=== PATIENT | male | born 1955 | race Caucasian/White ===

== ENCOUNTER 2020-11-18 16:50 | Emergency (ER) | payer MEDICARE ==
[~2020-11-18] VITALS: Ht 182.9 cm; Wt 79.5 kg
[2020-11-18 16:51] VITALS: BP 136/91
[2020-11-18] MEDS ORDERED: CEPH250T PO (16:55)
[2020-11-18] MEDS ORDERED: MUPI22OI30 TOP (16:55)
[2020-11-18] MEDS ORDERED: DOXY100C76 PO (16:55)
[2020-11-22] MEDS ORDERED: NO HOME MEDS (22:26)
[2020-11-26] MEDS ORDERED: CLIN-97 PO (10:41)
== END 2020-11-18 17:04 | disposition home or self-care (01) ==
LOC: ER 16:50
DX: L02.416 Cutaneous abscess of left lower limb (principal); L03.116 Cellulitis of left lower limb; Z79.2 Long term (current) use of antibiotics; Z79.899 Other long term (current) drug therapy
CPT/HCPCS: 99283

== ENCOUNTER 2020-11-20 09:39 | Emergency (ER) | payer MEDICARE ==
[~2020-11-20] VITALS: Ht 182.9 cm; Wt 79.5 kg
[~2020-11-20 09:39] MED LIST: CEPH250T PO; DOXY100C76 PO; MUPI22OI30 TOP
[2020-11-20 09:45] VITALS: BP 127/73
[2020-11-20] MEDS ORDERED: LIDOcaine 1% W/epiNEPHrine 1:200,000 10ml vial IJ ONE (10:45)
[2020-11-20] MEDS ORDERED: HYDR-3965 PO (12:00)
[2020-11-20] MEDS ORDERED: SULF1TAB49 PO (12:00)
[2020-11-20] MEDS ORDERED: CEPH-585 PO (12:00)
[2020-11-22] MEDS ORDERED: NO HOME MEDS (22:26)
[2020-11-26] MEDS ORDERED: CLIN-97 PO (10:41)
== END 2020-11-20 13:13 | disposition home or self-care (01) ==
LOC: ER 09:40
DX: L02.11 Cutaneous abscess of neck (principal); Z79.2 Long term (current) use of antibiotics; Z79.899 Other long term (current) drug therapy
CPT/HCPCS: 10060; 87070; 87077; 87186; 99283